=== PATIENT | female | born 1990 | race Caucasian/White ===

== ENCOUNTER 2017-11-23 19:20 | Emergency (ER) | payer SELFPAY ==
[~2017-11-23] VITALS: Ht 160 cm; Wt 71.7 kg
[2017-11-23 20:03] VITALS: Ht 160 cm; Wt 71.7 kg
[2017-11-24 00:30] VITALS: BP 127/83
== END 2017-11-24 00:30 | disposition home or self-care (01) ==
LOC: ED 19:20
DX: B37.3 Candidiasis of vulva and vagina (principal); N39.0 Urinary tract infection, site not specified
CPT/HCPCS: 87491; 87591; J0696; Q0162